=== PATIENT | male | born 1980 | race Caucasian/White ===

== ENCOUNTER 2022-11-21 11:55 | Emergency (ER) | payer OTHER, SELFPAY ==
[2022-11-21 12:05] VITALS: BP 136/94; PULSE 104; RESP 14; TEMP 36.9; O2SAT 100; BMI 28.2
--- NOTE | 2022-11-21 13:20 | ED_ITS ---
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 the patient have an abscess developed there he was already started antibiotic clindamycin by his caregiver there and he needed some bedside drainage for the abscess No fever no chills no other complaints Related Data Previous Rx's Medication Instructions Recorded amoxicillin 875 mg-potassium 1 tab PO BID #20 tabs 11/21/22 clavulanate 125 mg tablet Allergies Allergy/AdvReac Type Severity Reaction Status Date / Time haloperidol [From Haldol] Allergy Unknown Verified 11/21/22 12:10 quetiapine [From Seroquel] Allergy Unknown Verified 11/21/22 12:10 ziprasidone [From Geodon] Allergy Unknown Verified 11/21/22 12:10 Review of Systems ROS Status of ROS 10 or more systems reviewed and unremarkable except as noted in history and below PFSH PFS Social History Smoking status: Current every day smoker Exam Narrative Exam Narrative: Nurses notes and vital signs reviewed and patient is not hypoxic. General: Well-appearing and in no apparent distress. Skin: Warm, dry, no pallor noted. No rash. Head: Normocephalic, atraumatic. Neck: Supple, non-tender. Eye: Pupils are equal, round and EOMI. No scleral icterus. Ears, Nose, Mouth, and Throat: TM are clear, no nasal mucosal hypertrophy. Oral mucosa is moist, no posterior oropharynx erythema, uvula is mid-line Cardiovascular: Regular Rate and Rhythm without murmur, gallop or rub. Respiratory: No accessory muscle use or respiratory distress. Lungs are clear to auscultation, no wheezing, rales or rhonchi Chest Wall: no tenderness Back: No midline thoracic or lumbar vertebral tenderness. No CVA tenderness Musculoskeletal: normal ROM, the patient have an area of 1 x 1 cm circular in size with fluctuation at the lateral aspect of the forearm no surrounding induration and the patient have good capillary refill and good radial pulse GI: Abdomen is soft, non-distended. Normal bowel sounds. No masses appreciated. No tenderness to palpation. No rebound, guarding, or rigidity noted. Neurological: A&O x4. No cranial nerve dysfunction observed. No truncal ataxia. Moves all extremities. Sensation intact. Psychiatric: Cooperative and interactive. Normal mood and affect. Constitutional Vital Signs, click to edit/add: Last Vital Signs Temp 98.5 F 11/21/22 12:05 Pulse 104 H 11/21/22 12:05 Resp 14 11/21/22 12:05 BP 136/94 H 11/21/22 12:05 Pulse Ox 100 11/21/22 12:05 O2 Del Method Room Air 11/21/22 12:05 Course Vital Signs Vital signs: Vital Signs Temperature 98.5 F 11/21/22 12:05 Pulse Rate 104 H 11/21/22 12:05 Respiratory Rate 14 11/21/22 12:05 Blood Pressure 136/94 H 11/21/22 12:05 Pulse Oximetry 100 11/21/22 12:05 Oxygen Delivery Method Room Air 11/21/22 12:05 Temperature 98.5 F 11/21/22 12:05 Pulse Rate 104 H 11/21/22 12:05 Respiratory Rate 14 11/21/22 12:05 Blood Pressure 136/94 H 11/21/22 12:05 Pulse Oximetry 100 11/21/22 12:05 Oxygen Delivery Method Room Air 11/21/22 12:05 MDM - Skin/Abscess/Foreign Bdy MDM Narrative Medical decision making narrative: After cleaning the area with Betadine and infiltrating the area with almost 60 cc of lidocaine 1% with no epinephrine, the patient had a drainage of the abscess that almost 3 cc of pus drained through large bore needle 18-gauge that was enough to make the swelling disappear the patient also had a stab with 11 size blade that with pressure there was only blood coming with no abscess anymore The patient bedside drainage was successful in reducing the size of the abscess and he had Augmentin added to his medication The patient will come back in case of increased swelling or any fever or chills Wound culture obtained He was discharged to go back to [facility] The patient was discharged home with a plan to get Augmentin in addition to his clindamycin Discharge Plan Discharge Chief Complaint: Skin/Abscess/Foreign Body Clinical Impression: Abscess of skin or subcutaneous tissue Patient Disposition: Home, Self-Care Time of Disposition Decision: 13:23 Condition: Good Mode of Transportation: Private Vehicle Prescriptions / Home Meds: New amoxicillin-pot clavulanate 875-125 mg tablet 1 tab PO BID Qty: 20 0RF Instructions: Abscess (ED), Abscess Follow-up (ED) Stand Alone Forms: Portal Instructions Referrals: MAIKEL SCHMIDT [Primary Care Provider] - 1 week Discharge Date/Time: 11/21/22 13:45
== END 2022-11-21 13:45 | disposition home or self-care (01) ==
PROVIDERS: Emergency Provider Emergency Medicine; PCP Family Medicine
DX: L02.413 Cutaneous abscess of right upper limb (principal); F17.210 Nicotine dependence, cigarettes, uncomplicated
CPT/HCPCS: 10060; 87070; 99283